=== PATIENT | female | born 1955 | race Caucasian/White ===

== ENCOUNTER 2022-02-02 15:18 | Emergency (ER) | payer OTHER ==
[~2022-02-02] VITALS: Ht 157.5 cm; Wt 68.5 kg
[2022-02-02 15:20] VITALS: BP 167/98
--- NOTE | 2022-02-02 15:20 | NUR ---
JUSTIN ALS TO ER BED 6
--- NOTE | 2022-02-02 15:22 | NUR ---
DISHA LYNN FROM [facility] TAKEN TO ER BED 6.
--- NOTE | 2022-02-02 15:32 | NUR ---
67 y/o female biba from [facility], pt states she slipped fell on a wet floor, fell on left side. denies loc or syncope. pt is c/o left knee pain and left shoulder pain. upon assessment, pt has minimal rom on left side, cap refill <3, skin intact, no obvious deformities. skin is pink/warm/dry. a&o x4, ambulates with mimimal assist. lungs clear bl, heart rate even and regular. pt denies any fever, cp, sob, or cough at this time. pt states pain is 8/10 at this time. patient positioned for comfort. hob elevated. bed down. ermd made aware of pt. pmh: htn nka med: lipitor, benazepril
--- NOTE | 2022-02-02 15:33 | NUR ---
ER MD AT BEDSIDE FOR EVALUATION
[2022-02-02] MEDS ORDERED: KETOROLAC 15 MG/ML VIAL IVP ONE (15:35)
--- NOTE | 2022-02-02 15:35 | NUR ---
PATIENT TAKEN TO XRAY VIA W/C WITH [facility] [employer] [facility].
--- NOTE | 2022-02-02 15:48 | NUR ---
Ankur mann in [facility] - 02/02/22 at 1558 by DEMETRIA pt ambulated to bathroom with even and steady gait
--- NOTE | 2022-02-02 15:57 | NUR ---
PT BROUGHT BACK FROM [facility] VIA WHEELCHAIR
--- NOTE | 2022-02-02 15:57 | NUR ---
PATIENT RETURNED FROM RADIOLOGY. PLACED BACK INTO BED. RECONNECTED TO MONITOR. ALL NEEDS MET AT THIS TIME.
[2022-02-02] MEDS ORDERED: NAPR-54 PO (16:35)
[2022-02-02] MEDS ORDERED: ACET-10509 PO (16:35)
[2022-02-02 17:00] VITALS: BP 126/75
--- NOTE | 2022-02-02 17:02 | NUR ---
Patient discharged with v/s stable. Written and verbal after care instructions FOR CONTUSION given and explained. Patient alert, oriented and verbalized understanding of instructions. with steady gait. All questions addressed prior to discharge. ID band removed. Patient advised to follow up with PMD. Rx of NAPROXEN AND IBUPROFEN given. Opportunity to ask questions provided and answered.
--- NOTE | 2022-02-02 17:03 | NUR ---
Chart checked and completed. The patient's care was reviewed and supervised by Milly Leon RN.
== END 2022-02-02 17:00 | disposition home or self-care (01) ==
LOC: MED 15:18
DX: S80.02XA Contusion of left knee, initial encounter (principal); S40.012A Contusion of left shoulder, initial encounter; I10 Essential (primary) hypertension; W18.30XA Fall on same level, unspecified, initial encounter; Y93.89 Activity, other specified; Y92.89 Other specified places as the place of occurrence of the external cause; Y99.8 Other external cause status
CPT/HCPCS: 73030; 73562; 96374; 99284; J1885